=== PATIENT | female | born 1935 | race Caucasian/White ===

== ENCOUNTER → 2017-02-15 | Outpatient (CLI) | payer MEDICARE, BC ==
--- NOTE | 2017-02-15 09:22 | XR ---
EXAMINATION TYPE: XR shoulder complete LT DATE OF EXAM: 02/15/2017 CLINICAL HISTORY: Left shoulder pain after lifting injury. TECHNIQUE: Three views of the left shoulder are obtained. COMPARISON: None. FINDINGS: Osseous structures are demineralized. There is no acute fracture/dislocation evident in th e left shoulder. There is spurring at acromioclavicular joint. There are subchondral cystic change mcneal perolateral humeral head. Glenohumeral joint is maintained. The visualized ribs are intact and unrem arkable. IMPRESSION: There is no acute fracture or dislocation in the left shoulder. Demineralization and deg enerative changes are present as detailed above.
== END | disposition home or self-care (01) ==
LOC: RADXRMAIN 08:59
PROVIDERS: ATTEND Internal Medicine Geriatric Medicine
DX: M89.8X1 Other specified disorders of bone, shoulder (principal); M25.512 Pain in left shoulder

== ENCOUNTER 2017-06-25 08:13 | Emergency (ER) | payer MEDICARE, BC ==
[2017-06-25] MEDS ORDERED: IPRATROPIUM-ALBUTEROL 3 ML NEB INHALATION STA (08:26)
--- NOTE | 2017-06-25 08:30 | ED ---
ENT HPI - General Chief complaint: ENT Stated complaint: cough/sore throat Time Seen by Provider: 06/25/17 08:19 Source: patient, RN notes reviewed, old records reviewed Mode of arrival: ambulatory Limitations: no limitations - History of Present Illness Initial comments: This patient is an 82-year-old female presents emergency Department chief complaint of a cough and sore throat for 3 days. She reports that when she lays down or lays on her right side she feels like she hears some wheezing. She denies any history of pneumonia. She reports she is otherwise very healthy. She is not on any medications currently. Patient reports that she was a former smoker. She does not use any inhalers or any other medications regularly. Patient states that she was concerned due to the wheezing and feeling generally ill. She denies any fever or chills. She reports that she has a sore throat due to her coughing. She states that she has no runny nose, and denies any ear pain. She denies any headache, neck pain, chest pain, nausea or vomiting or abdominal pain. No history of sick contacts that she is aware of. MD complaint: sore throat, other (Cough) Onset/Timin -: days(s) Location: throat Severity: mild Severity scale (1-10): 6 - Related Data Previous Rx's Medication Instructions Recorded Albuterol Inhaler [Ventolin Hfa 1 - 2 puff INHALATION Q6HR PRN #1 06/25/17 Inhaler] inhaler Levofloxacin [Levaquin] 750 mg PO DAILY #5 tab 06/25/17 Promethazine/Dextromethorphan 5 ml PO TID #120 ml 06/25/17 [Phenergan DM Syrup] methylPREDNISolone Dose Pack 4 mg PO DIRECTED #21 package 06/25/17 [Medrol Dose Pack] Allergies Allergy/AdvReac Type Severity Reaction Status Date / Time latex Allergy Rash/Hives Verified 06/25/17 08:18 Review of Systems ROS Statement: Those systems with pertinent positive or pertinent negative responses have been documented in the HPI. ROS Other: All systems not noted in ROS Statement are negative. Past Medical History Past Medical History: No Reported History History of Any Multi-Drug Resistant Organisms: None Reported Past Surgical History: Appendectomy, Joint Replacement Additional Past Surgical History / Comment(s): right knee replacement Past Psychological History: No Psychological Hx Reported Smoking Status: Former smoker Past Alcohol Use History: Occasional Past Drug Use History: None Reported General Exam - General Exam Comments Initial Comments: This patient is an 82-year-old female. Patient started alert and oriented 4. No distress. Limitations: no limitations General appearance: alert, in no apparent distress Head exam: Present: atraumatic, normocephalic, normal inspection Eye exam: Present: normal appearance, PERRL, EOMI. Absent: scleral icterus, conjunctival injection, periorbital swelling ENT exam: Present: normal exam, mucous membranes moist Neck exam: Present: normal inspection. Absent: tenderness, meningismus, lymphadenopathy Respiratory exam: Present: wheezes (minimal rhonchi and wheezing in left lung), rhonchi. Absent: normal lung sounds bilaterally, respiratory distress, rales, stridor Cardiovascular Exam: Present: regular rate, normal rhythm, normal heart sounds. Absent: systolic murmur, diastolic murmur, rubs, gallop, clicks GI/Abdominal exam: Present: soft, normal bowel sounds. Absent: distended, tenderness, guarding, rebound, rigid Extremities exam: Present: normal inspection, full ROM, normal capillary refill. Absent: tenderness, pedal edema, joint swelling, calf tenderness Back exam: Present: normal inspection Neurological exam: Present: alert, oriented X3, CN II-XII intact Psychiatric exam: Present: normal affect, normal mood Skin exam: Present: warm, dry, intact, normal color. Absent: rash Course Vital Signs 06/25/17 06/25/17 06/25/17 08:14 08:36 08:47 Temperature 97.9 F Pulse Rate 102 H 90 92 Respiratory 18 Rate Blood Pressure 122/77 O2 Sat by Pulse 97 Oximetry 06/25/17 09:17 Temperature 99.1 F Pulse Rate 94 Respiratory 16 Rate Blood Pressure 126/65 O2 Sat by Pulse 99 Oximetry Medical Decision Making - Medical Decision Making This is an 82-year-old female presents today chief complaint of cough for 3 days. She also complains of mild sore throat. Says she had some minor wheezing on the left lung base. Some rhonchi noted. Patient has a nonproductive cough. Patient influenza testing is negative. She was given a DuoNeb treatment, chest x-ray. Her chest x-ray was reviewed and negative for any acute guarding upon a process. Patient was informed of these results. She continues to have a significant cough but the wheezing is resolved at this time. At this point I will start the patient on antibiotics and steroids for acute bronchitis. Discussed that she needs to follow-up with her primary care provider. I will discharge her as well with cough syrup and an albuterol inhaler. Given initial dose of Levaquin, and prednisone emergency department. Patient understands treatment plan will comply. Return parameters were discussed. - Lab Data Lab Results 06/25/17 Range/Units 08:30 Influenza Type A RNA Not Detected (Not Detectd) Influenza Type B (PCR) Not Detected (Not Detectd) - Radiology Data Radiology results: report reviewed Chest x-ray was reviewed and negative for any acute process. Disposition Clinical Impression: Bronchitis Disposition: HOME SELF-CARE Condition: Good Instructions: Acute Bronchitis (ED) Additional Instructions: Patient advised to rest, increase fluids. Take the medications as prescribed. Follow-up with primary care provider. Return to the emergency department if any alarming signs or symptoms occur. Prescriptions: Albuterol Inhaler [Ventolin Hfa Inhaler] 1 - 2 puff INHALATION Q6HR PRN #1 inhaler PRN Reason: Shortness Of Breath Levofloxacin [Levaquin] 750 mg PO DAILY #5 tab methylPREDNISolone Dose Pack [Medrol Dose Pack] 4 mg PO DIRECTED #21 package Promethazine/Dextromethorphan [Phenergan DM Syrup] 5 ml PO TID #120 ml Referrals: Ernst Oneal MD [Primary Care Provider] - 1-2 days Time of Disposition: 09:29
--- NOTE | 2017-06-25 08:57 | XR ---
EXAMINATION TYPE: XR chest 2V DATE OF EXAM: 06/25/2017 HISTORY: Pain. REFERENCE: NONE. FINDINGS: There are senescent changes throughout the lungs. The lungs are otherwise clear. Pleural sp monique are clear. The heart is not enlarged. There is unfolding of the thoracic aorta. IMPRESSION: NO ACUTE INTRATHORACIC DISEASE.
[2017-06-25 09:18] VITALS: BP 126/65; PULSE 94; RESP 16; TEMP 99.1
[2017-06-25] MEDS ORDERED: LEVOFLOXACIN 500 MG TAB PO STA (09:24)
[2017-06-25] MEDS ORDERED: predniSONE 50 MG TAB PO STA (09:25)
== END 2017-06-25 09:48 | disposition home or self-care (01) ==
LOC: EC 08:13
DX: J40 Bronchitis, not specified as acute or chronic (principal); Z87.891 Personal history of nicotine dependence; Z91.040 Latex allergy status
CPT/HCPCS: 99284 ×2; 94640; 87502; 71046; J7512

== ENCOUNTER → 2019-07-01 | Outpatient (CLI) | payer MEDICARE, BC ==
--- NOTE | 2019-07-01 15:18 | US ---
EXAMINATION TYPE: US pelvic complete DATE OF EXAM: 07/01/2019 COMPARISON: NONE CLINICAL HISTORY: R10.2 Pelvic pain. TECHNIQUE: Transvaginal (TV). Unable to see abdominal due to bladder position Date of LMP: Patient postmenopausal EXAM MEASUREMENTS: Uterus: 6.5 x 2.5 x 3.3 cm Endometrial Stripe: 4mm with 9mm of fluid Right Ovary: not visualized due to probable atrophy Left Ovary: 3.0 x 2.4 x 2.4 cm 1. Uterus: wnl 2. Endometrium: fluid in endometrium measuring 9mm 3. Right Ovary: not visualized due to probable atrophy 4. Left Ovary: left ovarian cyst measuring 3.0 x 2.2 x 2.2cm 5. Bilateral Adnexa: wnl 6. Posterior cul-de-sac: wnl IMPRESSION: 1. Abnormal endometrial fluid that could relate to cervical stenosis or obstruction by cervical mass. Direct visualization is recommended. 2. Anechoic simple appearing left ovarian cyst measures 3 cm, however this is abnormal in a postmenop ausal female. Consensus criteria recommends annual follow-up pelvic ultrasound to assess for interval growth. If there is higher clinical suspicion pelvic MRI with contrast could be considered for furth er evaluation. 3. Nonvisualization of the right ovary.
== END | disposition home or self-care (01) ==
LOC: RADUSWWP 13:13
PROVIDERS: ATTEND Internal Medicine Geriatric Medicine
DX: N83.202 Unspecified ovarian cyst, left side (principal); Z78.0 Asymptomatic menopausal state
CPT/HCPCS: 76830

== ENCOUNTER → 2021-09-29 | Outpatient (CLI) | payer MEDICARE, BC ==
--- NOTE | 2021-09-29 17:59 | XR ---
EXAMINATION TYPE: XR chest 2V DATE OF EXAM: 09/29/2021 COMPARISON: X-ray dated 06/25/2017 HISTORY: Chest pain TECHNIQUE: Frontal and lateral views of the chest are obtained. FINDINGS: Minimal atelectasis in the left lung base. Grossly unremarkable lungs otherwise. No sizable pleural e ffusion or definite pneumothorax. No gross cardiomegaly. Dextroscoliosis of the midthoracic spine which could be positional. Degenerati ve changes of thoracic spine. Osteopenia. IMPRESSION: Questionable left basal pulmonary atelectasis, otherwise unremarkable lungs. Incidental findings as d escribed above.
== END | disposition home or self-care (01) ==
LOC: RADXRMAIN 11:23
PROVIDERS: ATTEND Internal Medicine Geriatric Medicine
DX: R07.9 Chest pain, unspecified (principal)
CPT/HCPCS: 71046

== ENCOUNTER → 2022-06-29 | Outpatient (CLI) | payer MEDICARE, BC ==
--- NOTE | 2022-06-29 11:01 | US ---
EXAMINATION TYPE: US abdomen complete DATE OF EXAM: 06/29/2022 COMPARISON: NONE CLINICAL HISTORY: R10.84 GENERALIZED ABDOMINAL PAIN. Abdominal pain for 2 weeks, cholecystectomy 5/2 2 TECHNIQUE: Multiple sonographic images of the abdomen are obtained. FINDINGS: EXAM MEASUREMENTS: Liver Length: 13.3 cm CBD: 0.6 cm Spleen: 7.3 cm Right Kidney: 9.6 x 5.0 x 5.2 cm Left Kidney: 9.8 x 3.9 x 5.1 cm CENTRAL OFFICE WORKER NOTES: Technical limitations due to large amount of overlying bowel content Pancreas: Tail obscured by overlying bowel gas Liver: complex cystic area left lobe = 3.7 x 2.6 x 2.8cm Gallbladder: Surgically absent Evidence for sonographic Sesay's sign: no CBD: appears wnl Spleen: limited evaluation Right Kidney: cystic area = 3.3 x 3.3 x 2.6cm Left Kidney: cystic areas noted, largest = 4.7 x 4.8 x 3.8cm Upper IVC: wnl Abd Aorta: wnl Liver demonstrates a cystic structure as described above with internal septation. The intrahepatic p ortion of the IVC and proximal abdominal aorta are within normal limits. There is no evidence of cho lelithiasis. Common bile duct is unremarkable. The visualized portions of the pancreas are homogeno us. The spleen is unremarkable. Kidneys are symmetric and free of hydronephrosis. IMPRESSION: 1. Indeterminate complex cystic structure within the left hepatic lobe. This can be further evaluate d with MRI or CT liver mass protocol with IV contrast. 2. No evidence for obstructive uropathy. 3. Bilateral renal cysts.
== END | disposition home or self-care (01) ==
LOC: RADUSWWP 09:30
PROVIDERS: ATTEND Internal Medicine Geriatric Medicine
DX: N28.1 Cyst of kidney, acquired (principal)
CPT/HCPCS: 76700

== ENCOUNTER → 2022-07-06 | Outpatient (CLI) | payer MEDICARE, BC ==
--- NOTE | 2022-07-07 08:41 | CT ---
EXAMINATION TYPE: CT abdomen w con, liver mass protocol DATE OF EXAM: 07/06/2022 COMPARISON: Ultrasound abdomen 06/29/2022 HISTORY: 87-year-old female K76.89, N28.1, LIVER MASS TECHNIQUE: Contiguous axial scanning of the abdomen before and after administration of 80 ml Isovue 3 70 IV contrast. Delayed images through the kidneys and coronal/sagittal reconstructions performed. CT DLP: 1321.2 mGycm Automated exposure control for dose reduction was used. FINDINGS: Heart upper limits of normal in size without pericardial effusion. Some strandy atelectasis or scarring is present at the lower lungs without pleural effusion. Tortuous descending thoracic aorta is ectatic up to 2.8 cm. Borderline ectatic proximal common iliac arteries up to 5 cm. There is a small hiatal hernia. The liver is normal size measuring 13.9 cm. There is a complex cyst of the peripheral segment 2 left liver lobe measuring 3.1 x 2.1 x 1.6 cm (refer to coronal image 14 and axial image 14). There is mild internal complexity with a couple thin internal septations. As it is well seen on ultrasound, it can be reassessed in 6 months by that modality. No additional focal liver lesion is seen. No suspicious enhancing mass is identified. Portal venous system is patent. Mild prominence to the biliary system, acceptable given postcholecystectomy status. Adrenal glands, spleen, and pancreas within normal limits. Bilateral renal cysts of varying size, largest on the left measuring 4.1 cm and largest on the right measuring 3.0 cm. Symmetric uptake and excretion of contrast from the kidneys. No dilated small bowel, free fluid, or free air. No mesenteric or retroperitoneal lymphadenopathy. There is moderate stool burden. No pericolonic inflammatory change seen. However, note that the pelvi s is not imaged. 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 Grade 1, nearly grade 2 a nterolisthesis L4-L5. Grade 1 retrolisthesis L2-L3. IMPRESSION: 1. A complex cyst of segment 2 left liver lobe measures 3.1 x 2.1 x 1.6 cm and shows mild internal co mplexity with a couple thin internal septations. No suspicious enhancing soft tissue component is rehana arent. Suspect a benign mildly complex cyst. Biliary cystadenoma considered less likely. As it is wel l seen by ultrasound, six-month follow-up liver ultrasound recommended to reassess. 2. Small hiatal hernia. 3. Moderate stool burden. 4. Pelvis not imaged.
== END | disposition home or self-care (01) ==
LOC: RADCTMAIN 14:26
PROVIDERS: ATTEND Internal Medicine Geriatric Medicine
DX: K76.89 Other specified diseases of liver (principal); N28.1 Cyst of kidney, acquired; K44.9 Diaphragmatic hernia without obstruction or gangrene
CPT/HCPCS: 82565; 84520; 74160; 36415; Q9967 ×2

== ENCOUNTER 2022-07-07 07:43 | Observation (INO) | payer MEDICARE, BC ==
[2022-07-07] MEDS ORDERED: ONDANSETRON 4 MG/2 ML VIAL IVP STA (08:09)
[2022-07-07] MEDS ORDERED: MORPHINE SULFATE 4 MG/ML SYRINGE IVP STA (08:10)
--- NOTE | 2022-07-07 08:14 | ED ---
General Adult HPI - General Chief complaint: Abdominal Pain Stated complaint: Abd pain Time Seen by Provider: 07/07/22 07:53 Source: patient, family, RN notes reviewed, old records reviewed (Reviewed outpatient ultrasound and CT from this past week) Mode of arrival: wheelchair Limitations: no limitations - History of Present Illness Initial comments: Patient is a pleasant 87-year-old female presenting to the emergency department with concerns for epigastric discomfort. Onset of symptoms was several hours ago. Patient has had similar symptoms approximately 6 times since having her gallbladder removed around 6 or [address] Cristina. Patient does have some mild nausea. No vomiting. No fever. No constipation or diarrhea. Patient denies chest pain. - Related Data Home Medications Medication Instructions Recorded Confirmed Cholecalciferol [Vitamin D3] 1,000 units PO DAILY 06/25/17 06/25/17 Ibuprofen [Motrin] 200 - 400 mg PO Q6HR PRN 06/25/17 06/25/17 Thera Tear 1 tab PO DAILY 06/25/17 06/25/17 Vitamin B Complex 1 cap PO DAILY 06/25/17 06/25/17 cycloSPORINE 0.05% OPHTH SOLN 1 drop BOTH EYES BID 06/25/17 06/25/17 [Restasis] Previous Rx's Medication Instructions Recorded Albuterol Inhaler [Ventolin Hfa 1 - 2 puff INHALATION Q6HR PRN #1 06/25/17 Inhaler] inhaler Levofloxacin [Levaquin] 750 mg PO DAILY #5 tab 06/25/17 Promethazine/Dextromethorphan 5 ml PO TID #120 ml 06/25/17 [Phenergan DM Syrup] methylPREDNISolone Dose Pack 4 mg PO DIRECTED #21 package 06/25/17 [Medrol Dose Pack] Allergies Allergy/AdvReac Type Severity Reaction Status Date / Time latex Allergy Rash/Hives Verified 06/25/17 09:29 Review of Systems ROS Statement: Those systems with pertinent positive or pertinent negative responses have been documented in the HPI. ROS Other: All systems not noted in ROS Statement are negative. Constitutional: Denies: fever Eyes: Denies: eye pain ENT: Denies: ear pain Respiratory: Denies: cough Cardiovascular: Denies: chest pain Endocrine: Denies: fatigue Gastrointestinal: Reports: as per HPI, abdominal pain, nausea. Denies: vomiting Genitourinary: Denies: dysuria Musculoskeletal: Denies: arthralgia Skin: Denies: rash Neurological: Denies: weakness Past Medical History Past Medical History: No Reported History Additional Past Medical History / Comment(s): liver disease History of Any Multi-Drug Resistant Organisms: None Reported Past Surgical History: Appendectomy, Cholecystectomy, Joint Replacement Additional Past Surgical History / Comment(s): right knee replacement Past Psychological History: No Psychological Hx Reported Past Alcohol Use History: Occasional Past Drug Use History: None Reported General Exam Limitations: no limitations General appearance: alert, in no apparent distress Head exam: Present: normocephalic Eye exam: Present: normal appearance Neck exam: Present: normal inspection Respiratory exam: Present: normal lung sounds bilaterally Cardiovascular Exam: Present: regular rate, normal rhythm Expanded Peripheral pulses: 2+: Posterior Tibialis (R), Posterior Tibialis (L) GI/Abdominal exam: Present: soft, tenderness (Mild to moderate tenderness right upper quadrant and epigastric). Absent: distended, guarding, rebound, rigid, pulsatile mass Extremities exam: Present: normal inspection Neurological exam: Present: alert Psychiatric exam: Present: normal affect, normal mood Skin exam: Present: normal color Course Vital Signs 07/07/22 07:46 Temperature 98.1 F Pulse Rate 73 Respiratory 20 Rate Blood Pressure 135/83 O2 Sat by Pulse 98 Oximetry - Reevaluation(s) Reevaluation #1: 07/07/22 08:14 Case was discussed with Dr. Santos who did review ultrasound from last week and CT from today showing nonspecific findings. Possible liver cystic mass. EKG Findings - EKG Results: EKG: interpreted by MARVIN (Atrial rhythm. Possible right ventricular conduction delay. Left anterior fascicular block. Q waves V1 and V2. Left axis), normal ST/T Medical Decision Making - Medical Decision Making Was pt. sent in by a medical professional or institution (, PA, TERMITE RENEWAL INSPECTOR, urgent care, hospital, or fdc...) When possible be specific @ -No Did you speak to anyone other than the patient for history (EMS, parent, family, police, friend...)? What history was obtained from this source @ -Family is present and provides history as well, confirming patient's history Did you review nursing and triage notes (agree or disagree)? Why? @ -I reviewed and agree with nursing and triage notes Were old charts reviewed (outside hosp., previous admission, EMS record, old EKG, old radiological studies, urgent care reports/EKG's, fdc records)? Report findings @ -Reviewed previous ultrasound and computed tomography scan from this past week done as outpatient Differential Diagnosis (chest pain, altered mental status, abdominal pain women, abdominal pain men, vaginal bleeding, weakness, fever, dyspnea, syncope, headache, dizziness, GI bleed, back pain, seizure, CVA, palpatations, mental health)? @ -Differential Abdominal Pain Women: Appendicitis, Cholecystitis, diverticulosis, ischemic bowel, pancreatitis, hepatitis, UTI, gastroenteritis, AAA, incarcerated hernia, bowel obstruction, constipation, inflammatory bowel, hepatitis, peptic ulcer disease, splenic infarction, perforated viscus, vulvitis, ovarian torsion, PID, kidney stone, placenta abruption, this is not meant to be an all-inclusive list EKG interpreted by me (3pts min.). @ -As above X-rays interpreted by me (1pt min.). @ -KUB interpreted by myself shows nonspecific bowel gas pattern. No definite acute process CT interpreted by me (1pt min.). @ -None done U/S interpreted by me (1pt. min.). @ -None done What testing was considered but not performed or refused? (CT, X-rays, U/S, labs)? Why? @ -MRCP will be ordered What meds were considered but not given or refused? Why? @ -None Did you discuss the management of the patient with other professionals (professionals i.e. , PA, TERMITE RENEWAL INSPECTOR, lab, RT, psych nurse, adoption social worker, flavoring oil filterer, teacher, service officer, upper caser)? Give summary @ -Case was discussed with Dr. Oneal who state patient has had elevated liver enzymes and would like patient admitted for MRCP. Case also discussed with Dr. Cristina, who will consult and agrees with MRCP. Case also discussed with Dr. Mitchell, who will admit covering for Dr. Oneal. Was smoking cessation discussed for >3mins.? @ -No Was critical care preformed (if so, how long)? @ -No Were there social determinants of health that impacted care today? How? (Homelessness, low income, unemployed, alcoholism, drug addiction, transportation, low edu. Level, literacy, decrease access to med. care, fci, rehab)? @ -No Was there de-escalation of care discussed even if they declined (Discuss DNR or withdrawal of care, Hospice)? DNR status @ -No What co-morbidities impacted this encounter? (DM, HTN, Smoking, COPD, CAD, Cancer, CVA, ARF, Chemo, Hep., AIDS, mental health diagnosis, sleep apnea, morbid obesity)? @ -Patient had gallbladder removal within the past 6 months approximately Was patient admitted / discharged? Hospital course, mention meds given and route, prescriptions, significant lab abnormalities, going to OR and other pertinent info. @ -Patient reevaluated twice. Patient and family updated on results and plan. Patient will be admitted pending MRCP results. Undiagnosed new problem with uncertain prognosis? @ -Undiagnosed new problem with uncertain prognosis, concern for possible common bile duct occlusion versus other cause Drug Therapy requiring intensive monitoring for toxicity (Heparin, Nitro, Insulin, Cardizem)? @ -No Were any procedures done? @ -No Diagnosis/symptom? @ -Abdominal pain Acute, or Chronic, or Acute on Chronic? @ -Acute on chronic Uncomplicated (without systemic symptoms) or Complicated (systemic symptoms)? @ -Uncomplicated Side effects of treatment? @ -No Exacerbation, Progression, or Severe Exacerbation? @ -Exacerbation Poses a threat to life or bodily function? How? (Chest pain, [place], [place], pneumonia, PE, COPD, DKA, ARF, appy, cholecystitis, CVA, Diverticulitis, Homicidal, Suicidal, threat to staff... and all critical care pts) @ -Potential threat to life and bodily function including liver failure - Lab Data Result diagrams: 07/07/22 08:18 07/07/22 08:18 Lab Results 07/07/22 07/07/22 07/07/22 Range/Units 08:18 08:18 08:18 WBC 10.5 (3.8-10.6) k/uL RBC 4.14 (3.80-5.40) m/uL Hgb 12.6 (11.4-16.0) gm/dL Hct 38.7 (34.0-46.0) % MCV 93.3 (80.0-100.0) fL MCH 30.4 (25.0-35.0) pg MCHC 32.6 (31.0-37.0) g/dL RDW 12.8 (11.5-15.5) % Plt Count 351 (150-450) k/uL MPV 7.0 Neutrophils % 91 % Lymphocytes % 4 % Monocytes % 4 % Eosinophils % 1 % Basophils % 0 % Neutrophils # 9.5 H (1.3-7.7) k/uL Lymphocytes # 0.4 L (1.0-4.8) k/uL Monocytes # 0.4 (0-1.0) k/uL Eosinophils # 0.1 (0-0.7) k/uL Basophils # 0.0 (0-0.2) k/uL PT 9.9 (9.0-12.0) sec INR 0.9 (<1.2) APTT 25.0 (22.0-30.0) sec Sodium 136 L (137-145) mmol/L Potassium 4.6 (3.5-5.1) mmol/L Chloride 101 (98-107) mmol/L Carbon Dioxide 28 (22-30) mmol/L Anion Gap 7 mmol/L BUN 16 (7-17) mg/dL Creatinine 0.82 (0.52-1.04) mg/dL Est GFR (CKD-EPI)AfAm 74 (>60 ml/min/1.73 sqM) Est GFR (CKD-EPI)NonAf 64 (>60 ml/min/1.73 sqM) Glucose 134 H (74-99) mg/dL Calcium 9.6 (8.4-10.2) mg/dL Total Bilirubin 2.5 H (0.2-1.3) mg/dL AST 225 H (14-36) U/L ALT 182 H (4-34) U/L Alkaline Phosphatase 284 H (38-126) U/L Troponin I (0.000-0.034) ng/mL Total Protein 7.3 (6.3-8.2) g/dL Albumin 4.0 (3.5-5.0) g/dL Amylase 47 (30-110) U/L Lipase 81 (23-300) U/L 07/07/22 Range/Units 08:18 WBC (3.8-10.6) k/uL RBC (3.80-5.40) m/uL Hgb (11.4-16.0) gm/dL Hct (34.0-46.0) % MCV (80.0-100.0) fL MCH (25.0-35.0) pg MCHC (31.0-37.0) g/dL RDW (11.5-15.5) % Plt Count (150-450) k/uL MPV Neutrophils % % Lymphocytes % % Monocytes % % Eosinophils % % Basophils % % Neutrophils # (1.3-7.7) k/uL Lymphocytes # (1.0-4.8) k/uL Monocytes # (0-1.0) k/uL Eosinophils # (0-0.7) k/uL Basophils # (0-0.2) k/uL PT (9.0-12.0) sec INR (<1.2) APTT (22.0-30.0) sec Sodium (137-145) mmol/L Potassium (3.5-5.1) mmol/L Chloride (98-107) mmol/L Carbon Dioxide (22-30) mmol/L Anion Gap mmol/L BUN (7-17) mg/dL Creatinine (0.52-1.04) mg/dL Est GFR (CKD-EPI)AfAm (>60 ml/min/1.73 sqM) Est GFR (CKD-EPI)NonAf (>60 ml/min/1.73 sqM) Glucose (74-99) mg/dL Calcium (8.4-10.2) mg/dL Total Bilirubin (0.2-1.3) mg/dL AST (14-36) U/L ALT (4-34) U/L Alkaline Phosphatase (38-126) U/L Troponin I <0.012 (0.000-0.034) ng/mL Total Protein (6.3-8.2) g/dL Albumin (3.5-5.0) g/dL Amylase (30-110) U/L Lipase (23-300) U/L Disposition Clinical Impression: Abdominal pain Disposition: ADMITTED IP TO THIS [facility] Is patient prescribed a controlled substance at d/c from ED?: No Referrals: Ernst Oneal MD [Primary Care Provider] - 1-2 days Time of Disposition: 10:44
[2022-07-07 08:29] LABS: Basophils % (A) 0 %; Eosinophils # (A) 0.1 k/uL (0-0.7); Eosinophils % (A) 1 %; HCT 38.7 % (34.0-46.0); HGB 12.6 gm/dL (11.4-16.0); Lymphocytes # (A) 0.4 k/uL (1.0-4.8); Lymphocytes % (A) 4 %; MCH 30.4 pg (25.0-35.0); MCHC 32.6 g/dL (31.0-37.0); MCV 93.3 fL (80.0-100.0); Monocytes # (A) 0.4 k/uL (0-1.0); Monocytes % (A) 4 %; Neutrophils # (A) 9.5 k/uL (1.3-7.7); Neutrophils % (A) 91 %; Platelet Count 351 k/uL (150-450); RBC 4.14 m/uL (3.80-5.40); RDW 12.8 % (11.5-15.5); WBC 10.5 k/uL (3.8-10.6)
[2022-07-07 08:42] LABS: INR 0.9 (<1.2); Prothrombin Time 9.9 sec (9.0-12.0)
[2022-07-07 09:05] LABS: Calcium 9.6 mg/dL (8.4-10.2); Potassium 4.6 mmol/L (3.5-5.1); Total Bilirubin 2.5 mg/dL (0.2-1.3); Total Protein 7.3 g/dL (6.3-8.2)
--- NOTE | 2022-07-07 09:07 | XR ---
EXAMINATION TYPE: XR KUB DATE OF EXAM: 07/07/2022 8:52 AM INDICATION: Patient age:Female; 87 years old; Reason for study: abdominal pain; COMPARISON: CT abdomen TECHNIQUE: One radiographic view of the abdomen was obtained. FINDINGS: The bowel gas pattern is nonspecific without dilated loops of small or large bowel. There i s no evidence for organomegaly or pneumoperitoneum. The osseous structures are intact. No abnormal calcifications are present. Fecal material and gas are demonstrated throughout the colon and rectum. High density stool seen within the colon. Multilevel disc degeneration changes throughout the spine with levoscoliosis apex L3. Right upper quadrant course segment clips. IMPRESSION: Nonspecific bowel gas pattern without radiographic evidence for acute process.
[2022-07-07] MEDS ORDERED: MORPHINE SULFATE 4 MG/ML SYRINGE IV PRN (10:46)
[2022-07-07] MEDS ORDERED: NALOXONE 0.4 MG/ML 1 ML VIAL IV PRN (10:46)
[2022-07-07] MEDS ORDERED: LORazepam 0.5 MG TAB PO PRN (10:46)
[2022-07-07] MEDS ORDERED: ONDANSETRON 4 MG/2 ML VIAL IVP PRN (10:46)
--- NOTE | 2022-07-07 10:48 | US ---
EXAMINATION TYPE: US gallbladder DATE OF EXAM: 07/07/2022 COMPARISON: 07/06/2022 CLINICAL HISTORY: pain. TECHNIQUE: Multiple sonographic images of the right upper quadrant are obtained. FINDINGS: EXAM MEASUREMENTS: Liver Length: 14.4 cm Gallbladder Wall: Surgically absent CBD: 1.5 cm Right Kidney: 10.8 x 5.2 x 4.7 cm BUSINESS STRATEGIST NOTES:Extensive overlying bowel gas Pancreas: Mostly obscured by bowel gas Liver: Left lobe partially obscured by bowel gas Gallbladder: Surgically absent Evidence for sonographic Sesay's sign: no CBD: dilated, intrahepatic ducts dilated, somewhat limited visualization Right Kidney: inferior pole obscured by bowel IMPRESSION: 1. No evidence for acute process. 2. Dilated biliary system which can be seen in setting of postcholecystectomy physiology.
[2022-07-07] MEDS: PANTOPRAZOLE 40 MG/10 ML VIAL IV SCH (13:07)
[2022-07-07] MEDS: SODIUM CHLORIDE 0.9% 1,000 ML IV SCH ×2 (13:08→23:51)
--- NOTE | 2022-07-07 14:13 | P.HPIM ---
History of Present Illness H&P Date: 07/07/22 History of present illness; patient is a 87-year-old lady with no significant past medical history who presented to the ER because of abdominal pain. Patient had cholecystectomy done 6-8 months ago. Following that patient had 4-5 episodes of abdominal pain involving the right side of the abdominal, which is intermittent sharp in character, 10 x 10 intensity. No aggravating factors associated but relieved by laying down. Patient did notice nausea associated with episodes of abdominal pain. Patient denied any fever or chills. Patient was being followed up outpatient by her PCP and did have ultrasound of abdomen done. This episode abdominal pain started this morning, character of this pain is similar to the previous episodes. Because of this abdominal pain patient came to the ER of [facility].Initial lab work showed sodium 136, total bilirubin 2.5, AST 225, ALT,182, alk phos 284. Ultrasound gallbladder showed dilated biliary system. CT dominant showed complex cyst in left liver lobe measuring 3.1 x 2.1 x 1.6 cm, suspect a benign mildly complex cyst . Patient will be admitted for further evaluation and treatment REVIEW OF SYSTEMS: CONSTITUTIONAL: No fever, no malaise, no fatigue. HEENT: No recent visual problems or hearing problems. Denied any sore throat. CARDIOVASCULAR: No chest pain, orthopnea, PND, no palpitations, no syncope. PULMONARY: No shortness of breath, no cough, no hemoptysis. GASTROINTESTINAL: As mentioned in HPI NEUROLOGICAL: No headaches, no weakness, no numbness. HEMATOLOGICAL: Denies any bleeding or petechiae. GENITOURINARY: Denies any burning micturition, frequency, or urgency. MUSCULOSKELETAL/RHEUMATOLOGICAL: Denies any joint pain, swelling, or any muscle pain. ENDOCRINE: Denies any polyuria or polydipsia. The rest of the 14-point review of systems is negative. PHYSICAL EXAMINATION: GENERAL: The patient is alert and oriented x3, not in any acute distress. Well developed, well nourished. HEENT: Pupils are round and equally reacting to light. EOMI. No scleral icterus. No conjunctival pallor. Normocephalic, atraumatic. No pharyngeal erythema. No thyromegaly. CARDIOVASCULAR: S1 and S2 present. No murmurs, rubs, or gallops. PULMONARY: Chest is clear to auscultation, no wheezing or crackles. ABDOMEN: Soft, nontender, nondistended, normoactive bowel sounds. No palpable organomegaly. MUSCULOSKELETAL: No joint swelling or deformity. EXTREMITIES: No cyanosis, clubbing, or pedal edema. NEUROLOGICAL: Gross neurological examination did not reveal any focal deficits. SKIN: No rashes. Assessment and plan Abdominal pain Elevated LFTs Cyst involving left liver lobe History of prior cholecystectomy Plan; Monitor vital signs Monitor CBC Monitor CMP Continue pain management Continue antiemetics Ordered MRCP Depending upon the results of MRCP, will decide about transfer of patient to facility where GI can evaluate the patient Past Medical History Past Medical History: No Reported History, Eye Disorder Additional Past Medical History / Comment(s): liver disease History of Any Multi-Drug Resistant Organisms: None Reported Past Surgical History: Appendectomy, Cholecystectomy, Joint Replacement Additional Past Surgical History / Comment(s): right knee replacement Past Anesthesia/Blood Transfusion Reactions: No Reported Reaction Past Psychological History: No Psychological Hx Reported Smoking Status: Former smoker Past Alcohol Use History: Occasional Past Drug Use History: None Reported Medications and Allergies Home Medications Medication Instructions Recorded Confirmed Type cycloSPORINE 0.05% OPHTH SOLN 1 drop BOTH EYES BID 06/25/17 07/07/22 History [Restasis] Cholecalciferol [Vitamin D3 (25 25 mcg PO DAILY 07/07/22 07/07/22 History Mcg = 1000 Iu)] Multivitamins, Thera [Multivitamin 1 tab PO DAILY 07/07/22 07/07/22 History (formulary)] RX: Albuterol Inhaler [Ventolin 1 - 2 puff INHALATION RT-Q6H PRN 07/07/22 07/07/22 History Hfa Inhaler] RX: Omeprazole 20 mg PO DAILY 07/07/22 07/07/22 History Thera-Tears Eye Supplement 1 tab PO DAILY 07/07/22 07/07/22 History Allergies Allergy/AdvReac Type Severity Reaction Status Date / Time latex Allergy Rash/Hives Verified 07/07/22 10:54 Physical Exam Vitals: Vital Signs Temp Pulse Pulse Resp BP BP Pulse Ox 07/07/22 12:00 98.9 F 96 16 158/87 95 07/07/22 11:13 93 18 164/83 99 07/07/22 07:46 98.1 F 73 20 135/83 98 Intake and Output 0107/07/22 07/07/22 22:59 06:59 14:59 Other: Weight 72.575 kg Results CBC & Chem 7: 07/07/22 08:18 07/07/22 08:18 Labs: Abnormal Lab Results - Last 24 Hours (Table) 07/07/22 07/07/22 Range/Units 08:18 08:18 Neutrophils # 9.5 H (1.3-7.7) k/uL Lymphocytes # 0.4 L (1.0-4.8) k/uL Sodium 136 L (137-145) mmol/L Glucose 134 H (74-99) mg/dL Total Bilirubin 2.5 H (0.2-1.3) mg/dL AST 225 H (14-36) U/L ALT 182 H (4-34) U/L Alkaline Phosphatase 284 H (38-126) U/L Thrombosis Risk Factor Assmnt - Choose All That Apply Any of the Below Risk Factors Present?: Yes Each Factor Represents 1 point: Obesity (BMI >25), Varicose veins Other Risk Factors: Yes Each Risk Factor Represents 3 Points: Age 75 years or older Other congenital or acquired thrombophilia - If yes, enter type in comment: No Thrombosis Risk Factor Assessment Total Risk Factor Score: 5 Thrombosis Risk Factor Assessment Level: High Risk
[2022-07-08 05:38] LABS: ALT 195 U/L (4-34); AST 163 U/L (14-36); African American GFR (CKD) 65 (>60 ml/min/1.73 sqM); Albumin 3.2 g/dL (3.5-5.0); Albumin/Globulin Ratio 1.1; Alkaline Phosphatase 217 U/L (38-126); Anion Gap 9 mmol/L; Blood Urea Nitrogen 19 mg/dL (7-17); Calcium 8.6 mg/dL (8.4-10.2); Carbon Dioxide 24 mmol/L (22-30); Chloride 103 mmol/L (98-107); Glucose 91 mg/dL (74-99); Non-African American GFR(CKD) 56 (>60 ml/min/1.73 sqM); Potassium 4.5 mmol/L (3.5-5.1); Sodium 136 mmol/L (137-145); Total Bilirubin 6.5 mg/dL (0.2-1.3); Total Protein 6.2 g/dL (6.3-8.2)
[2022-07-08 05:42] LABS: Basophils % (A) 0 %; Eosinophils # (A) 0.1 k/uL (0-0.7); Eosinophils % (A) 1 %; HCT 36.5 % (34.0-46.0); HGB 11.8 gm/dL (11.4-16.0); Lymphocytes # (A) 0.8 k/uL (1.0-4.8); Lymphocytes % (A) 7 %; MCH 30.6 pg (25.0-35.0); MCHC 32.5 g/dL (31.0-37.0); MCV 94.2 fL (80.0-100.0); Mean Platelet Volume 7.7; Monocytes # (A) 0.8 k/uL (0-1.0); Monocytes % (A) 7 %; Neutrophils # (A) 9.3 k/uL (1.3-7.7); Neutrophils % (A) 82 %; Platelet Count 265 k/uL (150-450); RBC 3.88 m/uL (3.80-5.40); RDW 13.3 % (11.5-15.5); WBC 11.3 k/uL (3.8-10.6)
[2022-07-08] MEDS: PANTOPRAZOLE 40 MG/10 ML VIAL IV SCH (08:22)
--- NOTE | 2022-07-08 14:12 | MR ---
MR MRCP INDICATION: Patient age:Female; 87 years old; Reason for study: ab pain, eval for cbd obstruction; PHH. COMPARISON: Gallbladder ultrasound 07/07/2022, transvaginal ultrasound 07/01/2019, CT abdomen 07/06/19, abdominal ultrasound 06/29/2022. TECHNIQUE: Multi planar, T2-weighted imaging with and without fat saturation and chemical shift imag ing was performed of the abdomen. Then, heavily T2 weighted imaging (half-Fourier acquisition single- shot turbo spin-echo) was utilized in order to study the biliary system. Maximum intensity projectio n images were reconstructed from the original data of the biliary tree. No Gadolinium given. FINDINGS: MRCP: Mild prominence of the intrahepatic bile ducts with mildly prominent common bile duct measuring up to 7 mm in diameter at the pancreatic head. No ductal stricture, choledocholithiasis or obstructi ng mass identified. The common hepatic duct measures 7 mm in size. The pancreatic duct is normal. The gallbladder is surgically absent. Abdomen: The spleen, adrenal glands, and pancreas are unremarkable nontargeted imaging. Lobulated T2 hyperintense cystic lesion within the anterior left hepatic lobe measuring up to 3.1 cm. There is thi n peripheral septation. No mural nodularity. Trace amount of free fluid in the pelvis. Left adnexal cyst measuring up to 3.1 cm without septations or nodularity corresponding to prior ultrasound findings. Bilateral T2 hyperintense foci/cyst demons trated within the kidneys consistent with cysts. No hydronephrosis. Scoliotic curvature of the thorac al lumbar spine. IMPRESSION: 1. Mild prominence of the intra and extra hepatic bile ducts without ductal stricture, choledocholit hiasis or obstructing mass identified. This is likely sequelae of post cholecystectomy. 2. Lobulated cystic lesion with the anterior left hepatic lobe measuring up to 3.1 cm within periphe ral septation and no mural nodularity likely representing a benign complex cyst. Follow-up liver ultr asound 6 months is recommended. 3. Bilateral renal cysts. 4. Left adnexal 3.1 cm cyst is stable from prior ultrasound.
[2022-07-08] MEDS: SODIUM CHLORIDE 0.9% 1,000 ML IV SCH ×2 (17:10→21:22)
[2022-07-08 18:20] LABS: Hepatitis A Antibody IgM Nonreactive (Nonreactive); Hepatitis B Core IgM Nonreactive (Nonreactive); Hepatitis B Surface Antigen Nonreactive (Nonreactive); Hepatitis C IgG Antibody Nonreactive (Nonreactive)
--- NOTE | 2022-07-08 19:18 | P.PN ---
Subjective Progress Note Date: 07/08/22 87-year-old lady with no significant past medical history who presented to the ER because of abdominal pain. Patient had cholecystectomy done 6-8 months ago. Following that patient had 4-5 episodes of abdominal pain involving the right side of the abdominal, which is intermittent sharp in character, 10 x 10 intensity. No aggravating factors associated but relieved by laying down. Patient did notice nausea associated with episodes of abdominal pain. Patient denied any fever or chills. Patient was being followed up outpatient by her PCP and did have ultrasound of abdomen done. This episode abdominal pain started this morning, character of this pain is similar to the previous episodes. Because of this abdominal pain patient came to the ER of [facility].Initial lab work showed sodium 136, total bilirubin 2.5, AST 225, ALT,182, alk phos 284. Ultrasound gallbladder showed dilated biliary system. CT dominant showed complex cyst in left liver lobe measuring 3.1 x 2.1 x 1.6 cm, suspect a benign mildly complex cyst . Patient will be admitted for further evaluation and treatment Objective - Vital Signs Vital signs: Vital Signs Temp 97.5 F L 07/08/22 07:30 Pulse 78 07/08/22 08:00 Resp 16 07/08/22 08:00 BP 136/79 07/08/22 07:30 Pulse Ox 98 07/08/22 07:30 FiO2 Intake & Output 07/07/22 07/08/22 07/08/22 18:59 06:59 18:59 Output Total 0 Balance 0 Weight 72.575 kg Output: Emesis 0 Other: Voiding Method Toilet # Voids 1 - Exam GENERAL: The patient is alert and oriented x3, not in any acute distress. Well developed, well nourished. HEENT: Pupils are round and equally reacting to light. EOMI. No scleral icterus. No conjunctival pallor. Normocephalic, atraumatic. No pharyngeal erythema. No thyromegaly. CARDIOVASCULAR: S1 and S2 present. No murmurs, rubs, or gallops. PULMONARY: Chest is clear to auscultation, no wheezing or crackles. ABDOMEN: Soft, nontender, nondistended, normoactive bowel sounds. No palpable organomegaly. MUSCULOSKELETAL: No joint swelling or deformity. EXTREMITIES: No cyanosis, clubbing, or pedal edema. NEUROLOGICAL: Gross neurological examination did not reveal any focal deficits. SKIN: No rashes. - Labs CBC & Chem 7: 07/08/22 04:58 07/08/22 04:58 Labs: Abnormal Lab Results - Last 24 Hours (Table) 07/08/22 07/08/22 Range/Units 04:58 04:58 WBC 11.3 H (3.8-10.6) k/uL Neutrophils # 9.3 H (1.3-7.7) k/uL Lymphocytes # 0.8 L (1.0-4.8) k/uL Sodium 136 L (137-145) mmol/L BUN 19 H (7-17) mg/dL Total Bilirubin 6.5 H (0.2-1.3) mg/dL AST 163 H (14-36) U/L ALT 195 H (4-34) U/L Alkaline Phosphatase 217 H (38-126) U/L Total Protein 6.2 L (6.3-8.2) g/dL Albumin 3.2 L (3.5-5.0) g/dL Assessment and Plan Assessment: Assessment and plan Abdominal pain Elevated LFTs Cyst involving left liver lobe History of prior cholecystectomy Plan; Monitor vital signs Monitor CBC Monitor CMP Continue pain management Continue antiemetics Ordered MRCP Depending upon the results of MRCP, will decide about transfer of patient to facility where GI can evaluate the patient
[2022-07-08] MEDS: cycloSPORINE 0.05% OPHTH 0.4 ML DROPERETTE BOTH EYES SCH (21:20)
[2022-07-09 07:05] VITALS: RESP 18
[2022-07-09] MEDS: cycloSPORINE 0.05% OPHTH 0.4 ML DROPERETTE BOTH EYES SCH (07:30)
[2022-07-09] MEDS: PANTOPRAZOLE 40 MG/10 ML VIAL IV SCH ×2 (07:31→07:33)
[2022-07-09] MEDS ORDERED: NON FORMULARY DRUG (Omeprazole [Omeprazole] 20 MG Capsule.Dr) PO SCH (09:00)
[2022-07-09] MEDS ORDERED: MULTIVITAMINS, THERA 1 EACH TAB PO SCH (09:00)
[2022-07-09 09:43] LABS: Basophils # (A) 0.04 X 10*3/uL (0.00-0.10); Basophils % (A) 0.6 %; Eosinophils # (A) 0.13 X 10*3/uL (0.04-0.35); Eosinophils % (A) 1.9 %; HCT 34.1 % (37.2-46.3); HGB 11.1 g/dL (12.0-15.0); Immature Grans, Automated 0.9 %; Lymphocytes # (A) 0.86 X 10*3/uL (0.90-5.00); Lymphocytes % (A) 12.6 %; MCH 30.8 pg (27.0-32.0); MCHC 32.6 g/dL (32.0-37.0); MCV 94.7 fL (80.0-97.0); Mean Platelet Volume 9.8 fL (9.5-12.2); Monocytes # (A) 0.61 X 10*3/uL (0.20-1.00); Monocytes % (A) 8.9 %; NRBC Per 100 WBC 0 /100 WBCS (0.0-0.0); Neutrophils # (A) 5.13 X 10*3/uL (1.80-7.70); Neutrophils % (A) 75.1 %; Platelet Count 333 X 10*3/uL (140-440); RDW 13.1 % (11.5-14.5); WBC 6.83 X 10*3/uL (4.50-10.00)
[2022-07-09 14:18] LABS: African American GFR (CKD) 66.2 (60.0-200.0); Albumin 3.6 g/dL (3.8-4.9); Albumin/Globulin Ratio 1.38 (1.60-3.17); Anion Gap 10.1 mmol/L (10.00-18.00); BUN/Creat Ratio 16.44 Ratio (12.00-20.00); Bilirubin, Conjugated 2.4 mg/dL (0.20-0.40); Bilirubin,Unconjugated 0.6 mg/dL (0.20-1.00); Blood Urea Nitrogen 14.8 mg/dL (9.0-27.0); Calcium 9.2 mg/dL (8.7-10.3); Carbon Dioxide 26.9 mmol/L (20.0-27.5); Globulin 2.6 g/dL (1.6-3.3); Non-African American GFR(CKD) 57.1 (60.0-200.0); Potassium 4.3 mmol/L (3.5-5.5); Total Protein 6.2 g/dL (6.2-8.2)
[2022-07-09] MEDS: SODIUM CHLORIDE 0.9% 1,000 ML IV SCH (18:16)
[2022-07-09 18:52] VITALS: BP 153/90; PULSE 79; TEMP 98.1
--- NOTE | 2022-07-09 19:03 | P.PN ---
Subjective Progress Note Date: 07/09/22 87-year-old lady with no significant past medical history who presented to the ER because of abdominal pain. Patient had cholecystectomy done 6-8 months ago. Following that patient had 4-5 episodes of abdominal pain involving the right side of the abdominal, which is intermittent sharp in character, 10 x 10 intensity. No aggravating factors associated but relieved by laying down. Patient did notice nausea associated with episodes of abdominal pain. Patient denied any fever or chills. Patient was being followed up outpatient by her PCP and did have ultrasound of abdomen done. This episode abdominal pain started this morning, character of this pain is similar to the previous episodes. Because of this abdominal pain patient came to the ER of [facility].Initial lab work showed sodium 136, total bilirubin 2.5, AST 225, ALT,182, alk phos 284. Ultrasound gallbladder showed dilated biliary system. CT dominant showed complex cyst in left liver lobe measuring 3.1 x 2.1 x 1.6 cm, suspect a benign mildly complex cyst . Patient will be admitted for further evaluation and treatment 24 hour interval change 07/09/2022 Patient is seen and evaluated in room with daughter at bedside; plan of care and progress on transferred to a tertiary center was discussed in great detail - Patient has been accepted at [facility]; await bed opening Lab review shows a sodium of 140, potassium 4.3, BUN/creatinine of 14/0.9, total bilirubin trended down to 3.0, AST/ALT are trending down at 99/143; acute hepatitis profile is negative Plan is to transfer patient to [address] [place] [address] for further GI evaluation Objective - Vital Signs Vital signs: Vital Signs Temp 98 F 07/09/22 07:00 Pulse 67 07/09/22 07:00 Resp 18 07/09/22 07:00 BP 153/82 07/09/22 07:00 Pulse Ox 98 07/09/22 07:00 FiO2 Intake & Output 07/08/22 07/09/22 07/09/22 18:59 06:59 18:59 Intake Total 118 120 Balance 118 120 Intake: Oral 118 120 Other: Voiding Method Toilet Toilet Toilet # Voids 2 2 0 - Exam GENERAL: The patient is alert and oriented x3, not in any acute distress. Well developed, well nourished. HEENT: Pupils are round and equally reacting to light. EOMI. No scleral icterus. No conjunctival pallor. Normocephalic, atraumatic. No pharyngeal erythema. No thyromegaly. CARDIOVASCULAR: S1 and S2 present. No murmurs, rubs, or gallops. PULMONARY: Chest is clear to auscultation, no wheezing or crackles. ABDOMEN: Soft, nontender, nondistended, normoactive bowel sounds. No palpable organomegaly. MUSCULOSKELETAL: No joint swelling or deformity. EXTREMITIES: No cyanosis, clubbing, or pedal edema. NEUROLOGICAL: Gross neurological examination did not reveal any focal deficits. SKIN: No rashes. - Labs CBC & Chem 7: 07/09/22 06:21 07/09/22 06:21 Labs: Abnormal Lab Results - Last 24 Hours (Table) 07/09/22 Range/Units 06:21 RBC 3.60 L (4.10-5.20) X 10*6/uL Hgb 11.1 L (12.0-15.0) g/dL Hct 34.1 L (37.2-46.3) % Immature Gran # 0.06 H (0.00-0.04) X 10*3/uL Lymphocytes # 0.86 L (0.90-5.00) X 10*3/uL Assessment and Plan Assessment: Assessment and plan Abdominal pain Elevated LFTs Cyst involving left liver lobe History of prior cholecystectomy Plan; Monitor vital signs Monitor CBC Monitor CMP Continue pain management Continue antiemetics Ordered MRCP Depending upon the results of MRCP, will decide about transfer of patient to facility where GI can evaluate the patient
== END 2022-07-09 22:00 | disposition other institution (70) ==
LOC: EC 07:43 → 6NMEDSUR 10:48
PROVIDERS: ADMIT Internal Medicine; ATTEND Internal Medicine
DX: R10.9 Unspecified abdominal pain (principal); R11.0 Nausea; K76.89 Other specified diseases of liver; R79.89 Other specified abnormal findings of blood chemistry; I44.4 Left anterior fascicular block; I83.90 Asymptomatic varicose veins of unspecified lower extremity; E66.9 Obesity, unspecified; Z68.30 Body mass index [BMI] 30.0-30.9, adult; Z79.899 Other long term (current) drug therapy; Z91.040 Latex allergy status; Z90.49 Acquired absence of other specified parts of digestive tract; Z96.651 Presence of right artificial knee joint
CPT/HCPCS: 96376; 96361 ×3; 96375 ×2; 96374; 99285; 36415; 93005; 80053 ×3; 80076; 80074; 82150; 82248; 83690; 84484; 85025 ×3; 85610; 85730; 87635; 74018; 76705; 74181; G0378 ×3; J2270; J2405; C9113 ×2